=== PATIENT | male | born 1975 | race Caucasian/White ===

== ENCOUNTER 2020-10-07 05:51 | Day surgery (SDC) | payer MEDICAID ==
[2020-10-05 10:54] LABS: COVID AG,FIA SOURCE NASOPHARYNGEAL
[~2020-10-07] VITALS: Ht 177.8 cm; Wt 67.3 kg
[~2020-10-07 05:51] MED LIST: ALBU6.7H9 IH; ASPI-1450 PO; ATOR20TA65 PO; FAMO20 PO; FERR325T23 PO; FLUT1AER5 IH; GABA-1181 PO; MONT10TA32 PO; RISP2TAB45 PO
[2020-10-07] MEDS ORDERED: SODIUM CHLORIDE 0.9% 1,000 ML IV ONE (06:30)
[2020-10-07] MEDS ORDERED: SODIUM CHLORIDE 0.9% 1,000 ML ONE (06:58)
[2020-10-07] MEDS ORDERED: MIDAZOLAM HCL 2 MG/2 ML VIAL ONE (07:38)
[2020-10-07] MEDS ORDERED: FentaNYL CITRATE PF 100 MCG/2 ML VIAL ONE (07:38)
[2020-10-07] MEDS ORDERED: MethylPREDNISolone SOD SUCC 125 MG/2 ML VIAL IVP ONE (09:00)
[2020-10-07] MEDS ORDERED: MethylPREDNISolone SOD SUCC 125 MG/2 ML VIAL ONE (09:04)
[2020-10-07] MEDS ORDERED: LIDOCAINE 4% 50 ML SOLUTION ONE (17:44)
[2020-10-07] MEDS ORDERED: ALBUTEROL SULFATE 2.5 MG/0.5 ML NEB SOLUTION NEB ONE (17:44)
[2020-10-07] MEDS ORDERED: LIDOCAINE 2% 30 ML JELLY ONE (17:44)
[2020-10-07] MEDS ORDERED: OXYGEN THERAPY IH SCH (20:00)
== END 2020-10-07 10:05 | disposition home or self-care (01) ==
LOC: SURGERY 05:51
PROVIDERS: ATTEND Internal Medicine Critical Care Medicine
DX: J38.4 Edema of larynx (principal); B37.0 Candidal stomatitis; F17.210 Nicotine dependence, cigarettes, uncomplicated; Z72.89 Other problems related to lifestyle; J43.9 Emphysema, unspecified; Z79.899 Other long term (current) drug therapy; Z98.890 Other specified postprocedural states
CPT/HCPCS: 31623; 31624; 71045; 87015; 87070; 87101; 87186; 87206; 87220; 87426; 88108; 88184; 88185; 88312; C9803; J2250; J2930; J3010; J7030; J7613; Z7610